=== PATIENT | female | born 1985 | race Caucasian/White ===

== ENCOUNTER 2024-09-18 08:15 | Outpatient (AMB) | payer BC, SELFPAY ==
[2024-09-18 08:23] VITALS: BP 138/88; PULSE 76; RESP 18; TEMP 36.2; O2SAT 98; BMI 27.4
--- NOTE | 2024-09-18 08:23 | GYNCLNT_ITS ---
Vital Signs 09/18/24 08:23 Height 1.73 m Height Method Stated Weight 81.873 kg Weight Measurement Method Standing Scale BMI 27.4 BP 138/88 H Blood Pressure Source Automatic Cuff Blood Pressure Location Left Upper Arm Position Sitting Respiration 18 Pulse 76 Pulse Source Monitor Temp 97.2 F Temp Source Oral Pulse Oximetry (%) 98 Oxygen Delivery Method Room Air Allergies/Home Meds Allergies & Medications Allergies No Known Allergies Allergy (Verified 09/18/24 08:24) Medication Reconciliation No Known Home Medications 09/18/24 [History Confirmed 09/18/24] Intake Visit Data Collection New Patient or Established: New Patient (never been to [facility]) Reason for Visit:: Annual wellness exam Seen by Clinical Staff ONLY (RN/MA): No System Sales Consultant Required: No Do You Feel Safe at Home: Yes Authorities Contacted: N/A PCP or OBGYN visit in last 3 months: Yes Hx Now: No Are you currently on any form of Control: No Last menstrual period: 08/21/24 Pain Present Currently: No Pain Scale Used: Joshua-Mccoy/Numerical Pain scale:: 0 Smoking Status Smoking Status: Never smoker 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 1. Little interest or pleasure in doing things: not at all 2. Feeling down, depressed, or hopeless: not at all Total score: 0 PHQ-9 3. Trouble falling or staying asleep, or sleeping too much: Not at all 4. Feeling tired or having little energy: Not at all 5. Poor appetite or overeating: Not at all 6. Feeling bad about yourself - or that you are a failure or have let yourself or your family down: Not at all 7. Trouble concentrating on things, such as reading the newspaper or watching television: Not at all 8. Moving or speaking so slowly that other people could have noticed? - Or the opposite - being so fidgety or restless that you have been moving around a lot more than usual: not at all 9. Thoughts that you would be better off or of hurting yourself in some way: Not at all Total score: 0 If you checked off any problems, how difficult have these problems made it for you to do your work, take care of things at home, or get along with other people?: not difficult at all Source: Developed by Drs. Mich Navarrete, Isabella Ramírez, Wilver Hill and colleagues, with an educational marilin from [employer]. Depression screen completed yes Social History Living Situation History Marital Status: Lives With: Family Housing: House Housing Other:: Patient stays at home and homeschools her 4 and 5 y/o daughters Tobacco History Smoking Status: Never smoker Second Hand Smoke Exposure: No Alcohol History Alcohol Intake: Never Domestic Abuse History Do You Feel Safe at Home: Yes Past Medical History Past Medical History Have you ever been diagnosed with any of the following: Reproductive Problems Breast Cancer: No Endometriosis: No Fibroids: No Genital Herpes: No Gonorrhea: No Pelvic Inflammatory Disease: No Polycystic Ovarian Syndrome: No Previous Pregnancies: Yes (Vaginal delivery x 2, miscarriage x 5) Surgical History Additional Surgical History: Multiple D&Cs for miscarriages History of Present Illness HPI Narrative The patient is a 38-year-old -0-5-2 who has been a patient of mine in [place] for many years. She has a 4-year-old daughter and a 5-year-old daughter. Their names are Shellie and Koki. Her 's name is Ferny. The patient does stay at home and homeschools her children. They also have some type of a hybrid program through a [employer] school. She does exercise regularly and has no gynecological complaints. She will release her records from [place] CABLE TELEVISION PROGRAM DIRECTOR to me. I do not have them available today. Patient has regular menstrual cycles. Her 's had a vasectomy for contraception. Review of Systems Review of Systems Narrative Review of Systems: Patient reports regular menstrual cycles every 30 days lasting 4 days. No painful cycles. No discharge. No odor. No painful intercourse. No urinary or breast complaints. No hot flashes or night sweats. The patient does exercise 5-7 days a week. She does core training strength training and HIIT training Exam General General Appearance: alert, in no apparent distress, comfortable, cooperative, healthy appearing and well groomed Neck Neck exam: Present normal inspection, full ROM and trachea midline Chest Chest inspection: Present normal inspection and symmetric chest wall rise Exp Chest Breast: bilateral: other (Normal bilateral breast exam) Resp Respiratory exam: Present normal lung sounds bilaterally Card Cardiovascular exam: Present regular rate, normal rhythm and normal heart sounds Abdominal Abdominal exam: Present soft and normal bowel sounds External exam: Present normal external exam Speculum exam: Present normal speculum exam Bimanual exam: Present normal bimanual exam and other (Retroverted uterus with) Extremities Extremities exam: Present normal inspection and full ROM Psych Psychiatric exam: Present normal affect and normal mood Skin Skin exam: Present warm, dry, intact and normal color Assessment & Plan Diagnosis / Problem List (1) Encounter for Routine Gynecological Examination: Qualifiers: Gynecological examination findings: abnormal findings ABSENT Qualified Code(s): Z01.419 - Encounter for gynecological examination (general) (routine) without abnormal findings (2) Women's annual routine gynecological examination: Status: Acute Assessment and Plan: Pap with high risk HPV was performed breast exam done encouraged patient declines mammogram till age 40. She will have all lab work drawn with primary care. No family history of gynecological cancers. Office Procedures OB Clinic LOC & Office Proc's Nursing/Assessment Patient Status: Initial/New Patient OB Clinic Nursing Assessment: BP Monitoring, Medication Reconciliation, Update PMH in EMR and Vital Signs OB Clinic Coordination of Care: Consent,records obtained, informed consent, Education Simp Pt/Fam and Staff clarify orders Miscellaneous Interventions: Pelvic/Pap Smear Set up New Patient Charge New Patient Point Assignment: 1094 New Patient Point Charge: DNA ANALYST Level 3 ([id number]) CABLE TELEVISION PROGRAM DIRECTOR: Papsmear Pap Smear Procedure Chaparone in room during procedure?: No Pre-op diagnosis general: Annual wellness exam Post-op diagnosis procedure note: Same Procedure Notes:: Pap with cotesting to HPV performed Papsmear completed: yes
== END 2024-09-18 09:16 | disposition home or self-care (01) ==
LOC: HODSOBC 08:15
PROVIDERS: Supervising Provider Obstetrics & Gynecology; Visit Provider Obstetrics & Gynecology
DX: Z01.419 Encounter for gynecological examination (general) (routine) without abnormal findings (principal)
CPT/HCPCS: 99203; G0463